=== PATIENT | male | born 1960 | race Two or more races ===

== ENCOUNTER 2017-03-15 11:02 | Day surgery (SDC) | payer OTHER ==
[2017-03-12 12:22] VITALS: BMI 36.9
[~2017-03-15 11:02] MED LIST: LACTATED RINGERS 1,000 ML IV SCH
[2017-03-15] MEDS ORDERED: LACTATED RINGERS 1,000 ML IV ONE (11:11)
[2017-03-15 11:12] VITALS: TEMP 98
[2017-03-15] MEDS ORDERED: LIDOCAINE 1% 20 ML VIAL (10MG/ML) FOR IV START INTRADERMA ONE (11:19)
[2017-03-15] MEDS ORDERED: LIDOCAINE 1% INJ 10MG/ML (20 ML MDV) ONE (11:54)
[2017-03-15] MEDS ORDERED: KETAMINE 10 MG/ML 20 ML VIAL ONE (11:54)
[2017-03-15] MEDS ORDERED: GLYCOPYRROLATE 0.2 MG/ML 2 ML VIAL ONE (11:54)
[2017-03-15] MEDS ORDERED: PROPOFOL 10 MG/ML 20 ML VIAL IV ONE (11:54)
--- NOTE | 2017-03-15 12:23 | P.PCN ---
Date of Procedure: 03/15/17 Procedure(s) Performed: Brief history: Patient is a pleasant 56-year-old white male, scheduled for an elective upper endoscopy as well as colonoscopy as a part of evaluation of right upper quadrant abdominal pain, GERD of several years duration. He is also scheduled for screening for colorectal neoplasia. Procedure performed: Esophagogastroduodenoscopy with biopsy Colonoscopy with snare polypectomy Preoperative diagnosis: GERD/right upper quadrant abdominal pain Screening for colorectal neoplasia. Anesthesia: MAC Procedure: After informed consent was obtained from the patient was brought into the endoscopy unit and IV sedation was administered by anesthesia under continuous monitoring. Initially upper endoscopy was done. The Olympus GF 160 video endoscope was inserted inserted into the mouth and esophagus intubated without any difficulty and was gradually advanced into the stomach and duodenum and carefully examined. The bulb and second part of the duodenum appeared normal. The scope was then withdrawn into the stomach adequately insufflated with air and upon careful examination the antrum and body, cardia and fundus appeared normal. The scope was then withdrawn into the esophagus. The GE junction was located at 40 cm to the incisors. There was a 1 cm ulceration noted at the GE junction and biopsies were done from this area. The GE junction appeared regular with no erythema erosions or ulcerations. Rest of the esophagus appeared normal. Patient tolerated the procedure well. At this time the patient continued to remain sedation. Initial digital rectal examination was normal. Olympus CF 160 video colonoscope was then inserted into the rectum and gradually advanced to the cecum without any difficulty. Careful examination was performed as the scope was gradually being withdrawn. The prep was excellent. The cecum appeared normal. In the ascending colon there was a 1 cm polyp removed by snare polypectomy. In the hepatic flexure there were 3 polyps measuring between 5 mm and 1 cm in size removed by snare polypectomy. In the transverse colon there was a 1 cm polyp removed by snare polypectomy. In the descending colon there was a 5 mm and 1.5 cm polyp removed by snare polypectomy. The rest of the ascending colon, transverse colon, descending colon, sigmoid colon and rectum appeared normal. Retroflexion was performed in the rectum and no lesions were noted. Patient tolerated the procedure well. Impression: 1. Upper endoscopy revealed 1 cm ulceration at the GE junction status post biopsy and mild antral gastritis 2. Colonoscopy revealed: a) 5 mm ascending colon polyp status post polypectomy b) 5 mm and 1 cm 2 hepatic flexure polyp status post polypectomy c) 1 cm transverse colon polyp serous was snare polypectomy d) 5 mm and 1.5 cm pedunculated descending colon polyp status post is post polypectomy Recommendations: Findings of this examination were discussed with the patient as well as his family. He was advised to follow with the biopsy results. He will continue with Prilosec 20 mg twice daily and follow antireflux measures and he'll be seen in the office in 2-3 weeks. Because of the multiple colon polyps. Have a repeat surveillance colonoscopy in 3 years.
[2017-03-15 12:37] VITALS: RESP 16
[2017-03-15 12:45] VITALS: BP 121/76; PULSE 70
== END 2017-03-15 13:45 | disposition home or self-care (01) ==
LOC: ORWHC2ENDO 11:02
PROVIDERS: ATTEND Internal Medicine Gastroenterology
DX: Z12.11 Encounter for screening for malignant neoplasm of colon (principal); D12.2 Benign neoplasm of ascending colon; D12.3 Benign neoplasm of transverse colon; D12.4 Benign neoplasm of descending colon; K21.0 Gastro-esophageal reflux disease with esophagitis; K29.50 Unspecified chronic gastritis without bleeding
CPT/HCPCS: 88305; 88342; 45385; 43239; J2001; J2704